=== PATIENT | female | born 1985 | race Two or more races ===

== ENCOUNTER 2024-11-01 10:25 | Day surgery (SDC) | payer MEDICARE, MEDICAID, SELFPAY ==
[2024-10-31 11:08] VITALS: BMI 16.0
--- NOTE | 2024-10-31 11:23 | EKG_ITS ---
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
[2024-10-31 12:11] LABS: Basophils # (Auto) 0.1 Thou/mm3 (0.0-0.2); Basophils % (Auto) 1 % (0-2.5); Eosinophils # (Auto) 0.2 Thou/mm3 (0.0-0.5); Eosinophils % (Auto) 2 % (0-10); Hematocrit 43.2 % (36.0-46.0); Hemoglobin 13.5 g/dL (12.0-16.0); Immature Granulocytes % (Auto) 2 % (0-0); Immature Granulocytes Auto 0.12 Thou/mm3 (0.00-0.00); Lymphocytes # (Auto) 2.2 Thou/mm3 (1.0-4.8); Lymphocytes % (Auto) 28 % (10-50); Mean Corpuscular HGB Conc 31.3 g/dl (31.0-37.0); Mean Corpuscular Hemoglobin 27.8 pg (25.0-35.0); Mean Corpuscular Volume 89 fL (80-100); Monocytes # (Auto) 0.5 Thou/mm3 (0.0-0.8); Monocytes % (Auto) 7 % (0-12); Neutrophils % (Auto) 62 % (37-80); Nucleated Red Blood Cell % 0 /100 WBC (0); Platelet Count 312 Thou/mm3 (140-440); RDW Standard Deviation 45.1 fL (36.4-46.3); Red Blood Count 4.85 Miln/mm3 (4.00-5.20); White Blood Count 8.1 Thou/mm3 (3.6-11.0)
[2024-10-31 12:36] LABS: HCG,Qualitative Serum Negative
[2024-10-31 12:37] LABS: Alanine Aminotransferase 50 U/L (10-49); Albumin, Serum 4.5 gm/dL (3.5-5.0); Albumin/Globulin Ratio 1.8 (1.2-2.2); Alkaline Phosphatase 83 U/L (46-116); Anion Gap 6 (7-16); Aspartate Amino Transferase 25 U/L (0-34); BUN/Creatinine Ratio 20 Ratio (12-20); Bilirubin,Total 0.5 mg/dL (0.3-1.2); Blood Urea Nitrogen 12 mg/dL (9-23); Calcium 9.6 mg/dL (8.3-10.6); Calcium (Corrected) 9.6 mg/dL (8.5-10.1); Carbon Dioxide 29.9 mMol/L (20.0-31.0); Chloride 104 mMol/L (98-107); Creatinine (Component) 0.6 mg/dL (0.6-1.3); Estimated Creatinine Clearance 84.3 mL/min (>60); Globulin 2.5 gm/dL (2.3-3.5); Glucose 88 mg/dL (74-106); Osmolality,Calculated 278 (275-295); Potassium 4.2 mMol/L (3.4-5.1); Sodium 140 mMol/L (136-145); eGFR > 60 See Note
--- NOTE | 2024-10-31 12:44 | SUR.PREOP ---
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
--- NOTE | 2024-10-31 14:36 | SUR.PREOP ---
Pt's ride and life partner notified to bring pt at 1030 tomorrow for surgery.
--- NOTE | 2024-10-31 14:56 | SUR.PREOP ---
Health history reviewed with Dr Rivera.
[2024-11-01 11:12] VITALS: BP 93/62; PULSE 99; RESP 18; TEMP 37; O2SAT 99; BMI 15.7
[2024-11-01] MEDS: RINGERS LACTATED 1000 ML 1,000 ML 20 ML IV (11:17)
--- NOTE | 2024-11-01 12:03 | PD.SUROPNT ---
Date of Procedure 11/01/24 Pre Op Diagnosis Right lateral chest wall mass History of neurofibromatosis Post Op Diagnosis Right lateral chest wall subfascial soft tissue mass History of neurofibromatosis Procedure Excision of subfascial soft tissue mass from right lateral chest wall Findings An approximately 4 cm hard and subfascial soft tissue mass of right lateral chest wall Procedure Description Patient brought into the operating room in supine position. After administration of monitored anesthesia care, patient was placed in left lateral decubitus position. Her right lateral chest wall was prepped and draped in standard surgical manner. After administration of local anesthesia an approximately 4 cm elliptical incision was made and dissection was deepened into soft tissue. The underlying mass was noted to be subfascial. The fascia was divided. The underlying mass was excised circumferentially with electrocautery. The mass was firm and approximately 4 cm in diameter. The wound was washed and irrigated and hemostasis achieved using electrocautery. Fascia reapproximated with interrupted sutures using 2-0 Vicryl. Subcutaneous tissue closed with interrupted sutures using 3-0 Vicryl and the incision was closed with 4-0 Monocryl in subcuticular fashion. Dermabond applied. Patient tolerated the procedure well. She was placed in supine position. She was breathing spontaneously and without difficulty and was transferred to postanesthesia care in stable condition. Instruments, needles and sponge counts were reported to be correct x 2. Anesthesia MAC and local Pathology / specimen Other (Right lateral chest wall soft tissue mass) Estimated Blood Loss 2 Condition Stable Disposition PACU Surgeon Yeimi Peter MD Surgical Staff Operation Date: 11/01/24 13:15 Case Staff BUSINESS CONSULT: Reg Spears RN First Assistant: Sterling Young
[2024-11-01 12:06] VITALS: BP 103/74; PULSE 88; RESP 12; TEMP 36.9; O2SAT 100
--- NOTE | 2024-11-01 12:06 | SUR.PHASEII ---
pt received from OR in recovery bay 5. pt asleep but responds to voice, breathing unlabored on oxymask 4l, v/s stable. pt dressing to right flank cdi. report received from Maynor MEDRANO and Omid SEN.
[2024-11-01 12:10] VITALS: BP 109/72; PULSE 84; RESP 12; TEMP 36.9; O2SAT 100
[2024-11-01 12:15] VITALS: BP 98/67; PULSE 75; RESP 12; TEMP 36.6; O2SAT 100
[2024-11-01 12:20] VITALS: BP 101/71; PULSE 78; RESP 12; TEMP 36.6; O2SAT 99
[2024-11-01 12:35] VITALS: BP 108/72; PULSE 80; RESP 12; TEMP 36.6; O2SAT 98
--- NOTE | 2024-11-01 12:46 | SUR.PHASEII ---
pt awake and alert, breathing unlabored on room air. v/s stable. pt dressing to right flank cdi. pt able to ambulate to wheelchair with steady gait. d/c instructions given with s/o maria alejandra in room all questions answered. pt d/c via wheelchair with all belongings.
== END 2024-11-01 12:46 | disposition home or self-care (01) ==
PROVIDERS: Anesthesiology; PCP Family Medicine; Referring Provider Surgery; Visit Provider Surgery
PROC: (CPT 21556; principal; 2024-11-01 13:00)
DX: D36.14 Benign neoplasm of peripheral nerves and autonomic nervous system of thorax (principal); Z01.810 Encounter for preprocedural cardiovascular examination
CPT/HCPCS: 21556; 36415; 80048; 80053; 84703; 85025; 93005; A4217; A4649; J0131; J0690; J2250; J3010; J3490; J7120